=== PATIENT | male | born 1985 | race Caucasian/White ===

== ENCOUNTER 2018-01-13 13:29 | Emergency (ER) | payer MEDICAID, SELFPAY ==
[2018-01-13 13:30] VITALS: BP 153/95; PULSE 111; RESP 18; TEMP 37.1; O2SAT 100; BMI 32.9
--- NOTE | 2018-01-13 14:28 | ED.DCSUM_ITS ---
- ER Visit Summary Date of Service: 01/13/18 Chief Complaint: [] Back pain History of Present Illness: The patient is a 32 M [] complaining of acute back pain after moving himself out of his apartment into a new place as well as moving his mother out of her apartment into a new place in the last 24 hours. Reports pain in the low lumbosacral spine. Denies any obvious injury. Reports taking ibuprofen twice prior to arrival without relief. Does report a previous history of back surgery. Physical Examination: [] Morbidly obese male in no acute distress. Cardiovascular exam is regular rate and rhythm. Lungs are clear to auscultation. Abdomen is soft and nontender. Neck and back exam revealed mild midline lumbosacral tenderness around L5 and S1 without step-off or deformity. Remainder of exam is unremarkable. Test Results: [] None Emergency Department Course and Treatment: [] Patient given 10 mg IM morphine and 60 mg IM Norflex for analgesia. He is given prescriptions for Naprosyn and Flexeril and encouraged to follow-up with his primary care physician. Treatment Plan: [] Follow-up with PCP. Disposition: [] Discharge, Stable. Impression: [] Acute back pain This note was generated with [employer] dictation software. It may contain incorrect words, spelling, and punctuation that were not noted in review of the chart prior to signing ED Disposition - Plan for ED Patient: Chief Complaint: Back Instructions: ED Spasm Back No Trauma Prescriptions: Naproxen 500 mg PO BID PRN PRN #20 tab PRN Reason: Pain Cyclobenzaprine [Flexeril] 10 mg PO TID #15 tab Referrals: Care Physician,No Primary [Primary Care Provider] -
--- NOTE | 2018-01-13 14:28 | ED.DEP ---
ED Disposition - Plan for ED Patient: Disposition: Home or Assisted Living Chief Complaint: Back Instructions: ED Spasm Back No Trauma Prescriptions: Naproxen 500 mg PO BID PRN PRN #20 tab PRN Reason: Pain Cyclobenzaprine [Flexeril] 10 mg PO TID #15 tab Referrals: Care Physician,No Primary [Primary Care Provider] -
[2018-01-13] MEDS: Orphenadrine 60 MG/2 ML Ampul IM (14:53)
[2018-01-13 15:17] VITALS: PULSE 102; RESP 16; O2SAT 98
[2018-01-13 15:18] VITALS: BP 145/70; PULSE 101; RESP 14; O2SAT 98
== END 2018-01-13 15:18 | disposition home or self-care (01) ==
PROVIDERS: Emergency Provider Emergency Medicine
DX: M54.5 Low back pain (principal); E66.01 Morbid (severe) obesity due to excess calories; Z90.89 Acquired absence of other organs; Z72.0 Tobacco use
CPT/HCPCS: 96372; 99283

== ENCOUNTER 2018-01-16 19:02 | Emergency (ER) | payer MEDICAID, SELFPAY ==
[2018-01-16 19:03] VITALS: BP 163/112; PULSE 116; RESP 16; TEMP 36.9; O2SAT 97; BMI 32.9
--- NOTE | 2018-01-16 20:18 | ED.VISSUMM ---
- ER Visit Summary Date of Service: 01/16/18 Chief Complaint: Acute lower and right-sided back pain History of Present Illness: The patient is a 32 M prior L5-S1 discectomy done by Dr. Tommy Cordova of orthopedics. On furniture to help move family members. Last week he started getting lower back pain that is progressively gotten worse now radiates down his right leg and is burning sensation. Denies any bowel or bladder incontinence. He denies any fever. He denies any fall or trauma. He is on no blood thinners. He denies any weakness in his lower extremities. The pain is worse with movement. Physical Examination: Young male c/o back pain. Vital signs are stable with blood pressure is elevated 163/112. He is tachycardic at 116. He is afebrile. H EENT exam markable. Neck nontender no lymphadenopathy. Lungs clear to auscultation bilaterally. Heart regular rhythm no murmur. Rate about 110. Abdomen soft nontender. Normal bowel sounds no peritoneal signs. Extremities moving all 4. Neurovascular intact. No cauda equina in the lower extremities. Normal medial thigh sensation. Dorsi plantar flexion intact. Does have a positive straight leg raise at about 30? on the right. He also has on the back exam lower lumbar tenderness and SI joint tenderness. There is no warmth or redness. No weakness either lower extremity. Normal sensation. Neurologic exam is unremarkable. No focal motor deficits. Test Results: None Emergency Department Course and Treatment: I am morphine p.o. Zofran. Patient instructed to follow-up either with Dr. Barr or [facility] spine surgeons. He is in need further evaluation. This may be a secondary to disc inflammation. Treatment Plan: [place] 20 no refill continue the Naprosyn. Call follow-up with the Dr. Cordova [facility] spine. Disposition: Discharge Impression: Acute on chronic lower back pain with sciatica History of prior discectomy This note was generated with [employer] dictation software. It may contain incorrect words, spelling, and punctuation that were not noted in review of the chart prior to signing ED Disposition - Plan for ED Patient: Chief Complaint: Back Referrals: Care Physician,No Primary [Primary Care Provider] -
--- NOTE | 2018-01-16 20:21 | ED.DEP ---
ED Disposition - Plan for ED Patient: Disposition: Home or Assisted Living Chief Complaint: Back Instructions: ED Sciatica Prescriptions: Hydrocodone/Acetaminophen [[place] 10-325 Tablet] 1 ea PO Q4H PRN PRN #20 tab PRN Reason: Pain Referrals: Tommy Cordova MD [STAFF PHYSICIAN] - Additional Instructions: On follow-up with 1 to [facility] orthopedic spine surgeons for ablation. Either Motrin or Naprosyn not both for inflammation. Sheridan for the stronger pain. Plenty of fluids and fiber to prevent constipation secondary to the pain medication. Return to the ER if leg weakness, worsening pain, fever, bowel or bladder incontinence or unable to have a bowel movement or urinate.
--- NOTE | 2018-01-16 20:22 | ED.DCSUM_ITS ---
- ER Visit Summary Date of Service: 01/16/18 Chief Complaint: Acute lower and right-sided back pain History of Present Illness: The patient is a 32 M prior L5-S1 discectomy done by Dr. Tommy Cordova of orthopedics. On furniture to help move family members. Last week he started getting lower back pain that is progressively gotten worse now radiates down his right leg and is burning sensation. Denies any bowel or bladder incontinence. He denies any fever. He denies any fall or trauma. He is on no blood thinners. He denies any weakness in his lower extremities. The pain is worse with movement. Physical Examination: Young male c/o back pain. Vital signs are stable with blood pressure is elevated 163/112. He is tachycardic at 116. He is afebrile. H EENT exam markable. Neck nontender no lymphadenopathy. Lungs clear to auscultation bilaterally. Heart regular rhythm no murmur. Rate about 110. Abdomen soft nontender. Normal bowel sounds no peritoneal signs. Extremities moving all 4. Neurovascular intact. No cauda equina in the lower extremities. Normal medial thigh sensation. Dorsi plantar flexion intact. Does have a positive straight leg raise at about 30? on the right. He also has on the back exam lower lumbar tenderness and SI joint tenderness. There is no warmth or redness. No weakness either lower extremity. Normal sensation. Neurologic exam is unremarkable. No focal motor deficits. Test Results: None Emergency Department Course and Treatment: I am morphine p.o. Zofran. Patient instructed to follow-up either with Dr. Barr or [facility] spine surgeons. He is in need further evaluation. This may be a secondary to disc inflammation. Treatment Plan: [place] 20 no refill continue the Naprosyn. Call follow-up with the Dr. Cordova [facility] spine. Disposition: Discharge Impression: Acute on chronic lower back pain with sciatica History of prior discectomy This note was generated with [employer] dictation software. It may contain incorrect words, spelling, and punctuation that were not noted in review of the chart prior to signing ED Disposition - Plan for ED Patient: Chief Complaint: Back Referrals: Care Physician,No Primary [Primary Care Provider] -
--- NOTE | 2018-01-16 20:25 | DCINST.ED_ITS ---
ED Disposition - Plan for ED Patient: Disposition: Home or Assisted Living Chief Complaint: Back Instructions: ED Sciatica Prescriptions: Hydrocodone/Acetaminophen [Hiram 10-325 Tablet] 1 ea PO Q4H PRN PRN #20 tab PRN Reason: Pain Referrals: Tommy Cordova MD [STAFF PHYSICIAN] - Additional Instructions: On follow-up with 1 to [facility] orthopedic spine surgeons for ablation. Either Motrin or Naprosyn not both for inflammation. Hiram for the stronger pain. Plenty of fluids and fiber to prevent constipation secondary to the pain medication. Return to the ER if leg weakness, worsening pain, fever, bowel or bladder incontinence or unable to have a bowel movement or urinate.
[2018-01-16] MEDS: Ondansetron ODT 4 MG Tablet PO (20:26)
[2018-01-16 20:45] VITALS: BP 132/88; PULSE 94; RESP 17; O2SAT 96
--- NOTE | 2018-01-16 20:46 | ED.RN ---
DISCHARGE INSTRUCTIONS GIVEN TO AND REVIEWED WITH PATIENT, PATIENT DENIES QUESTIONS OR CONCERNS AND VOICES UNDERSTANDING OF DISCHARGE INSTRUCTIONS. PT AMBULATES OUT OF ROOM WITHOUT ISSUE.
== END 2018-01-16 20:46 | disposition home or self-care (01) ==
PROVIDERS: Emergency Provider Emergency Medicine
DX: M54.41 Lumbago with sciatica, right side (principal); G89.29 Other chronic pain; Z98.890 Other specified postprocedural states; Z90.89 Acquired absence of other organs; Z72.0 Tobacco use
CPT/HCPCS: 96372; 99283

== ENCOUNTER 2019-05-26 18:04 | Emergency (ER) | payer MEDICAID, SELFPAY ==
[2019-05-26 18:05] VITALS: BP 188/108; PULSE 117; RESP 18; TEMP 36.6; O2SAT 98; BMI 41.6
[2019-05-26] MEDS: HYDROmorphone 1 MG/ML Syringe IM (18:39)
--- NOTE | 2019-05-26 18:45 | RAD_ITS ---
STUDY: X-RAY - LUMBAR SPINE REASON FOR EXAM: Male, 33 years old. Pain TECHNIQUE: 3 view(s) of the lumbar spine were obtained. COMPARISON: X-ray lumbar spine November 11, 2017 FINDINGS: There is no evidence of fracture or dislocation in the lumbar spine. The vertebral body heights and disc spaces are well-maintained. There are no significant degenerative changes. L2-L3 fusion is present. RAD/Lumbar Spine 2 or 3 Views IMPRESSION: No fracture or dislocation in the lumbar spine. Electronically Signed: Baljinder Del Valle, at 19:01 EDT Tel , Service support ,
--- NOTE | 2019-05-26 19:59 | ED.VISSUMM ---
- ER Visit Summary Date of Service: 05/26/19 Chief Complaint: [Back pain ] History of Present Illness: The patient is a 33 M [presents to the emergency department with back pain that started 2 days ago. Patient states that he was working in his yard when he felt a pop in his low back. Patient had pain ever since. Patient gradually worsened and now is having hard time sleeping at night. Patient also states that his neck supple bit stiff he thinks because of all the spasm and stress. Patient does have a history of chronic back pain issues and had surgery about a year ago for lumbar fusion. Patient denies any urinary symptoms. He denies any change in bowel or bladder function. He denies any weakness in the extremities. Patient chronically has some tingling in his left leg which is not new.] Physical Examination: [HEENT-PERRLA, EOMI. Cranial nerves II through XII grossly intact. TMs clear. Mucous membranes moist. No adenopathy. Cardiovascular-regular rate and rhythm without murmur or ectopy Lungs-clear to auscultation, chest wall stable without crepitus or subcu emphysema Abdomen-normoactive bowel sounds, soft, nontender, no rebound or rigidity, no peritoneal signs. Back exam-patient does have a large central scar over the lumbar spine that is well-healed. There is no erythema or warmth noted. Patient has diffuse tenderness over the lumbar spine and lumbar paraspinal muscular bilaterally. Deep tendon reflexes are plus 2 out of 4 bilaterally at the patella and Achilles. Patient has normal 5 extension. Patient has normal sensation to light touch. Extremities-intact ?4, normal range of motion, normal pulses, atraumatic] Test Results: [There is a lumbar spine showed no acute fractures and did show a fusion at L2-3.] Emergency Department Course and Treatment: [Medically with Dilaudid 1 mg IM.] Treatment Plan: [Will be given a prescription for [place] for pain and advised to follow-up with his primary care physician or surgeon within next 3 to 5 days.] Disposition: [Discharged home in stable condition.] Impression: [Lumbar strain] This note was generated with [employer] dictation software. It may contain incorrect words, spelling, and punctuation that were not noted in review of the chart prior to signing ED Disposition - Plan for ED Patient: Referrals: [facility] [address] Doctor,Out of [Primary Care Provider] -
--- NOTE | 2019-05-26 20:02 | DCINST.ED_ITS ---
ED Disposition - Plan for ED Patient: Instructions: Back Sprain/Strain Prescriptions: Hydrocodone Bitart/Apap 5-325 [[place] 5MG-325MG] 1 tab PO Q4H PRN PRN 2 Days #14 tab PRN Reason: Pain Prescription Printed Referrals: [facility] Doctor,Out of [Primary Care Provider] - 3-5 Days
== END 2019-05-26 20:29 | disposition home or self-care (01) ==
LOC: ED 19:01
PROVIDERS: Emergency Provider Emergency Medicine; Family Provider Family Medicine; PCP Family Medicine
DX: S39.012A Strain of muscle, fascia and tendon of lower back, initial encounter (principal); X58.XXXA Exposure to other specified factors, initial encounter; Y93.9 Activity, unspecified; Y92.9 Unspecified place or not applicable; M54.9 Dorsalgia, unspecified; G89.29 Other chronic pain; R20.2 Paresthesia of skin; Z98.1 Arthrodesis status; Z72.0 Tobacco use
CPT/HCPCS: 72100; 96372; 99282

== ENCOUNTER 2019-06-20 16:10 | Emergency (ER) | payer MEDICAID, SELFPAY ==
[2019-06-20 16:12] VITALS: BP 126/72; PULSE 107; RESP 16; TEMP 36.2; O2SAT 99; BMI 35.6
--- NOTE | 2019-06-20 18:01 | ED.DCSUM_ITS ---
- ER Visit Summary Date of Service: 06/20/19 Chief Complaint: Back pain History of Present Illness: The patient is a 33 M who presents with back pain that has been getting progressively worse over the past 2 days. Patient describes the pain as aching and burning. Patient states the pain is in the right lower lumbar area and radiates to the right posterior hip area. Patient denies any paresthesias or weakness. Patient denies any bowel or bladder changes. Patient denies any saddle anesthesia. Patient denies any trauma or injury. Patient states the pain is worse with weightbearing and with ambulation. Patient states he saw his primary care physician today who told him to increase his Flexeril. Patient states this is not helped. Physical Examination: Vital signs are stable. Patient is afebrile. Patient is in no acute distress. Musculoskeletal exam reveals tenderness of the right lumbar paraspinal muscles. There is no bony crepitance or step-off. Range of motion was limited in all motions of the lumbar spine secondary to pain. There is some mild tenderness over the right posterior hip area. There is pain with internal and external rotation. There is no deformity noted. Straight leg raises produce pain in the right hip but no radicular pain. Sensation was intact to light touch bilaterally in the lower extremities. Strength is 5/5 in the lower extremities. Deep tendon reflexes are 2/4 bilaterally in the lower extremity. Test Results: X-rays of the right hip were obtained. There is no acute process noted. Emergency Department Course and Treatment: Patient was given an injection of morphine here. Patient was feeling better on reevaluation. Patient was given a prescription for a short course of Jenkinjones. Patient was given a note for work. Patient was instructed to follow-up with his primary care physician in 3 to 5 days. Patient understood and was agreeable with the plan. All questions were answered. Disposition: Discharge home Impression: 1. Acute low back pain This note was generated with [employer] dictation software. It may contain incorrect words, spelling, and punctuation that were not noted in review of the chart breanao r to signing ED Disposition - Plan for ED Patient: Disposition: Home or Assisted Living Diagnosis: Acute low back pain Instructions: BACK PAIN w/ SCIATICA Prescriptions: Hydrocodone Bitart/Apap 5-325 [Jenkin[place] 5MG-325MG] 1 tab PO Q6H PRN PRN 3 Days #10 tab PRN Reason: Pain Prescription Printed Referrals: Emelina Kaye [Primary Care Provider] - 3-5 Days
[2019-06-20] MEDS: Morphine 4 MG/ML Syringe IM (18:13)
--- NOTE | 2019-06-20 18:30 | RAD_ITS ---
STUDY: X-RAY - PELVIS AND RIGHT HIP REASON FOR EXAM: Male, 33 years old. Pain TECHNIQUE: 4 views of the pelvis and hip. COMPARISON: None. FINDINGS: There is a non-specific bowel gas pattern. Normal visualized soft tissue structures. Normal bilateral iliac wings, sacroiliac joints and visualized sacrum. Normal bilateral superior and inferior pubic rami. Normal pubic symphysis. Normal bilateral ischial tuberosities. Normal visualized femoral head. Normal acetabulum. Normal hip joint. RAD/HIP, UNI W/ Pelvis 2-3 Views IMPRESSION: Normal x-ray examination of the pelvis and hip. Electronically Signed: Baljinder Del Valle, at 18:49 EDT Tel , Service support ,
== END 2019-06-20 19:37 | disposition home or self-care (01) ==
PROVIDERS: Emergency Provider Emergency Medicine; Family Provider Family Medicine; PCP Family Medicine
DX: M54.5 Low back pain (principal); E11.9 Type 2 diabetes mellitus without complications; F17.200 Nicotine dependence, unspecified, uncomplicated
CPT/HCPCS: 73502; 96372; 99282

== ENCOUNTER 2019-06-23 21:48 | Emergency (ER) | payer MEDICAID, SELFPAY ==
[2019-06-23 21:49] VITALS: BP 159/85; PULSE 108; RESP 20; TEMP 36.5; O2SAT 100; BMI 42.3
--- NOTE | 2019-06-23 22:24 | ED.VIS.BACK ---
History of Present Illness Chief Complaint: Back Informant: Patient Onset: Days Context: Sudden Onset Injury: - - No history of trauma Timing: Continuous Quality: Dull, Aching Location: Lumbar, Right Leg Current Severity: Moderate Maximum Severity: Severe Worsened by: improves with: Movement, Ambulation, Bending, Lifting, - - Not able to put weight on his right side Relieved by: Nothing Associated Symptoms: Tingling, Radiation to Right Leg, - - No bowel bladder dysfunction. No saddle paresthesia or anesthesia. No foot drop. No buckling of his knees going up or down steps. No fever, chills night sweats. No weight loss. No urologic symptoms i.e. dysuria or hematuria. Narrative: Patient is a 33-year-old male with microdisc surgery x2 and fusion by Dr. Rosales at the [facility]. He presents with atraumatic low back pain. He complains of pain anterior right thigh. He is taking ibuprofen with no effect. - Past Medical History (1) Chronic back pain greater than 3 months duration Status: Chronic Past Medical History - Allergies and Home Meds Allergies/Adverse Reactions: Allergies No Known Allergies Allergy (Verified 06/23/19 21:51) Primary Care Physician: Emelina Kaye [Primary Care Provider] - Surgical History: - - Good discectomy and fusion Lives: Alone Smoking Status: Current every day smoker Alcohol: Rare, Occasional Drugs: None Review of Systems General: Denies: Chills, Fever, Malaise, Subjective, Sweats, Weight loss Eyes: Denies: Visual changes - bilaterally, Blurred Vision - bilaterally, Diplopia ENT: Denies: Rhinorrhea, Sore throat Cardiovascular: Denies: Chest pain, Palpitations Respiratory: Denies: Dyspnea, Cough, Dyspnea on exertion Gastrointestinal: Denies: Abdominal pain, Nausea, Vomiting, Diarrhea, Melena, Hematochezia Genitourinary: Denies: Dysuria, Hematuria, Frequency Musculoskeletal: Reports: Back pain. Denies: Myalgias, Arthralgias, Neck pain, Swelling, Extremity Pain Skin: Denies: Rash, Wounds Neurological: Denies: Headache, Weakness, Numbness Hematologic: Denies: Easy bruising, Easy bleeding Allergy: Denies: Uticaria, Swelling of the mouth, Swelling of the tongue Physical Exam Vital Signs/Narrative: Vital Signs Temp Pulse Resp BP Pulse Ox 08/09/19 21:49 97.7 F L 108 H 20 H 159/85 H 100 Inital Vital Signs reviewed: Yes General: Well nourished, Well developed, Unkempt Head: Normocephalic, Atraumatic Eyes: Perrl, EOMI ENT: Moist mucous membranes, No rhinorrhea Neck: Supple, Nontender Cardiovascular: Regular rate, Regular rhythm, No murmurs Respiratory: No distress, CTA bilaterally, Chest nontender Abdomen: Soft, Nontender, Nondistended, Normal bowel sounds Back: Normal Inspection, Nontender, Paraspinal Tenderness - Right greater than left, - - Straight leg test was met with resistance. He complained of pain with elevation of his right and left leg at 5 degrees. When asked why he would not allow me to raise his leg he states it hurts.. Negative for: Spinal tenderness Extremeties: Nontender, No edema Skin: Normal color, No rash, No Trauma. Negative for: Cyanosis, Diaphoresis, Jaundice Neuro: Alert, Oriented, Normal Strength, Normal Sensation, Normal DTR - DTR plus minus bilaterally, Normal Gait, Normal Reflexes, Normal Cerebellar Reflexes: Right Patellar, Right Achilles, Left Patellar, Left Achilles. Negative for: Right Clonus, Right Babinski, Left Clonus, Left Babinski Psychological: Depressed Diagnostic/Tx/Re-eval - Medical Decision Making Vimal limited the pain. IV was established and he was medicated. We will reexamine to assess for straight leg test. She was reexamined after medication. Straight leg test was negative. Patient was reassessed again at 2330. He is resting on the examination bed comfortably. He states his insurance company will not approve an MRI. I informed him based on my exam he does not require an emergent MRI. He was given a short course of opiate analgesia and instructed to follow-up with his spine surgeon Dr. Rosales and his PCP for pain management. ED Disposition - Plan for ED Patient: Disposition: Home or Assisted Living Diagnosis: Pain of back and right lower extremity Instructions: BACK AND NECK PAIN, General Prescriptions: Hydrocodone Bitart/Apap 5-325 [[place] 5MG-325MG] 1 tab PO Q6H PRN PRN 3 Days #10 tab PRN Reason: Pain Prescription Printed Referrals: Emelina Kaye [Primary Care Provider] - 3-5 Days if not improving
[2019-06-23] MEDS: Ketorolac 15 MG/ML Vial IV (22:35)
[2019-06-23] MEDS: morphine 8 MG/ML Syringe IV (22:35)
[2019-06-24 00:06] VITALS: BP 150/85; PULSE 99; RESP 16; O2SAT 100
== END 2019-06-24 00:07 | disposition home or self-care (01) ==
PROVIDERS: Emergency Provider Emergency Medicine; Family Provider Family Medicine; PCP Family Medicine
DX: M54.5 Low back pain (principal); G89.29 Other chronic pain; M79.651 Pain in right thigh; R20.2 Paresthesia of skin; F17.200 Nicotine dependence, unspecified, uncomplicated
CPT/HCPCS: 96374; 96375; 99285; A4216

== ENCOUNTER 2019-08-15 11:36 | Emergency (ER) | payer MEDICAID, SELFPAY ==
[2019-08-15 11:37] VITALS: BP 166/107; PULSE 118; RESP 18; TEMP 36.6; O2SAT 100; BMI 36.2
[2019-08-15] MEDS: morphine 8 MG/ML Syringe SC (12:07)
[2019-08-15] MEDS: Ketorolac 30 MG/ML Syringe IM (12:08)
--- NOTE | 2019-08-15 12:08 | ED.DCSUM_ITS ---
History of Present Illness Chief Complaint: Back Narrative: Patient presenting for evaluation secondary to back pain. Patient has a history of a discectomy and fusion performed about 3 years ago. He intermittently will have issues with his back, he is been having exacerbation of the course of the last 3 days. He states that the pain is continuous and does radiate down his right leg and is associated with a burning sensation over the lateral portion of his right thigh. Patient reports that he was unable to get in with his primary care physician so he is coming to the emergency department. He denies any bowel or bladder incontinence. He denies any saddle anesthesia. He denies any fevers chills night sweats or unintended weight loss. No recent surgeries or injections, no history of IV drug abuse. Pain is worse with ambulation and movement. Review of systems otherwise negative. Past Medical History - Allergies and Home Meds Allergies/Adverse Reactions: Allergies No Known Allergies Allergy (Verified 08/15/19 11:39) Primary Care Physician: Emelina Kaye [Primary Care Provider] - Past Medical History: - - Prior back pain Surgical History: - - Good discectomy and fusion Smoking Status: Light Smoker (<10/day) Review of Systems All systems negative except as indicated Musculoskeletal: Reports: Back pain Physical Exam Vital Signs/Narrative: Vital Signs Temp Pulse Resp BP Pulse Ox 08/15/19 11:37 97.9 F 118 H 18 166/107 H 100 Inital Vital Signs reviewed: Yes General: Well nourished, Well developed Head: Normocephalic, Atraumatic Eyes: Perrl, EOMI ENT: Moist mucous membranes, No rhinorrhea Neck: Supple, Nontender Cardiovascular: Regular rate, Regular rhythm, No murmurs, - - 2+ radial, 2+ PT pulses bilaterally symmetric Respiratory: No distress, CTA bilaterally, Chest nontender Abdomen: Soft, Nontender, Nondistended, Normal bowel sounds. Negative for: Pulsatile mass Back: - - Large well-healed midline surgical scar. Diffuse lumbar tenderness to palpation no real localization over the midline. Extremeties: Nontender, No edema Skin: Normal color, No rash Neuro: Alert, Oriented, - - 5 out of 5 strength at the hip knee ankle and foot. Normal sensation over all dermatomes. 1+ patellar and Achilles reflexes negative clonus and Babinski. Straight leg raise is positive bilaterally. Diagnostic/Tx/Re-eval - Medical Decision Making Patient presented secondary to back pain. There is no red flag signs or symp toms that would indicate spinal cord impingement, cauda equina, epidural abscess or hematoma. Patient was treated with Toradol and morphine in the emergency department. Patient will be treated with a course of Medrol and a short course of [place] for treatment of his pain. He was instructed that he should follow-up with his spine surgeon. Disposition: Home ED Disposition - Plan for ED Patient: Disposition: Home or Assisted Living Diagnosis: Lumbar radiculopathy Instructions: BACK PAIN w/ SCIATICA Prescriptions: MethylPREDNISolone DosePak [Medrol DosePak] 4 mg PO UD #1 box Prescription Printed Hydrocodone Bitart/Apap 5-325 [[place] 5MG-325MG] 1 tab PO Q6H PRN PRN 3 Days #12 tab PRN Reason: Pain Prescription Printed Additional Instructions: Followup with your Spine Surgeon
== END 2019-08-15 12:37 | disposition home or self-care (01) ==
PROVIDERS: Emergency Provider Emergency Medicine; Family Provider Family Medicine; PCP Family Medicine
DX: M54.16 Radiculopathy, lumbar region (principal); Z98.1 Arthrodesis status; F17.200 Nicotine dependence, unspecified, uncomplicated
CPT/HCPCS: 96372; 99282

== ENCOUNTER 2019-11-06 21:45 | Emergency (ER) | payer MEDICAID, SELFPAY ==
[2019-11-06 21:46] VITALS: BP 168/61; PULSE 98; RESP 16; TEMP 36.9; O2SAT 100; BMI 40.1
--- NOTE | 2019-11-06 21:58 | ED.DCSUM_ITS ---
- ER Visit Summary Date of Service: 11/06/19 Chief Complaint: Back pain History of Present Illness: The patient is a 34 M who presents with back pain. He says his back pain for 6 months. He has a history of back issues in the past and has had 3 previous back surgeries. He states he had a recent MRI about 3 months ago which showed a bulging disc. They recommended injections but his insurance declined. He states he is on gabapentin and Relafen at home for this pain. He states the pain is just getting worse. He is not currently seeing any back surgeons. He denies any bowel or bladder incontinence. No numbness or tingling. Physical Examination: Vital signs reviewed. HEENT exam unremarkable. Heart is regular rate and rhythm without murmurs. Lungs are clear to auscultation. Abdomen is soft and nontender. Back exam reveals tenderness in the diffuse lumbar area. He has a previous surgical scar. Extremities reveal no edema. Skin exam normal. Neurologic exam normal. Test Results: None performed Emergency Department Course and Treatment: The patient was given Toradol and Norflex here. I will send him home with a prescription for prednisone to see if this will help with his pain. He will continue his home pain medications. He will call his doctor tomorrow for follow-up. Since this is chronic pain I do not feel he needs any new imaging studies. Treatment Plan: [] Disposition: Discharge Impression: Acute on chronic back pain This note was generated with [employer] dictation software. It may contain incorrect words, spelling, and punctuation that were not noted in review of the chart prior to signing ED Disposition - Plan for ED Patient: Referrals: Emelina Kaye [Primary Care Provider] -
--- NOTE | 2019-11-06 22:05 | ED.DEP ---
ED Disposition - Plan for ED Patient: Disposition: Home or Assisted Living Instructions: BACK PAIN (Acute or Chronic) Prescriptions: Prednisone [Deltasone] 40 mg PO DAILY #10 tab Prescription Printed Referrals: Emelina Kaye [Primary Care Provider] -
[2019-11-06] MEDS: Ketorolac 60 MG/2 ML Vial IM (22:14)
[2019-11-06] MEDS: Orphenadrine 60 MG/2 ML Ampul IM (22:14)
== END 2019-11-06 22:50 | disposition home or self-care (01) ==
LOC: ED 22:12
PROVIDERS: Emergency Provider Emergency Medicine; Family Provider Family Medicine; PCP Family Medicine
DX: M54.5 Low back pain (principal); G89.29 Other chronic pain; I10 Essential (primary) hypertension; Z72.0 Tobacco use
CPT/HCPCS: 96372; 99282

== ENCOUNTER 2020-01-08 19:47 | Emergency (ER) | payer MEDICAID, SELFPAY ==
[2020-01-08 19:48] VITALS: BP 162/96; PULSE 97; RESP 16; TEMP 36.8; O2SAT 99; BMI 37.3
--- NOTE | 2020-01-08 21:00 | RAD_ITS ---
STUDY: X-RAY - LUMBAR SPINE REASON FOR EXAM: Male, 34 years old. PT FELL DOWN STAIRS TODAY AND HAS LOW BACK PAIN. HX OF SPINAL FUSION. TECHNIQUE: Pre- view(s) of the lumbar spine were obtained. COMPARISON: November 11, 2017 , May 26, 2019 Lumbar Spine x-ray FINDINGS: Normal lumbar lordosis. There is no substantial scoliosis. There is a normal alignment of the vertebrae. Since the prior study November 11, 2017 there was a spinal fusion at L2-L3. The spinal fusion is similar in appearance to the study dated May 26, 2019. There are bilateral cortical screws at L2-L3 with bilateral spinal rods. An interconnecting bar is not demonstrated. There is no appreciable loss of height or alignment when compared to the prior study. Normal disc space heights. There is a small surgical clip overlying the right iliac crest similar to prior study. RAD/Lumbar Spine 2 or 3 Views IMPRESSION: Stable L2-L3 lumbar spine fusion. No visualized acute loss of height or alignment. Electronically Signed: Amanda Chu MD at 21:30 EST Tel , Service support ,
[2020-01-08] MEDS: Morphine 4 MG/ML Syringe IM (21:19)
--- NOTE | 2020-01-08 22:06 | ED.DCSUM_ITS ---
- ER Visit Summary Date of Service: 01/08/20 Chief Complaint: Back pain History of Present Illness: The patient is a 34 M who presents with back pain that began after a fall today. Patient states he fell approximately 4-5 steps. Patient describes his pain as burning and throbbing. Patient states pain is over the lumbar spine and lower thoracic spine. Patient states nothing makes it better or worse. Patient denies any radiation of the pain. Patient denies any bowel or bladder changes. Patient denies any paresthesias or weakness. Patient denies any saddle anesthesia. Physical Examination: Vital signs are stable. Patient is afebrile. Patient is in no acute distress. Musculoskeletal exam reveals tenderness over the lumbar spine and paraspinal muscles. There is no bony crepitance or step-off. Range of motion was limited in all motions of the lumbar spine secondary to pain. There are no deformities noted. Strength is 5/5 bilaterally in the lower extremities. There are no sensory deficits noted. Deep tendon reflexes are 2+/4 bilaterally. Test Results: X-rays of the lumbar spine were obtained. There is no acute fracture or spondylolisthesis. Prior fusion is in place. These were interpreted by the radiologist and myself. Emergency Department Course and Treatment: Patient was given an injection of morphine here. Patient was instructed to use ice to the area. Patient was given a prescription for Naprosyn. Patient was instructed to follow-up with his primary care physician in 5 to 7 days. Patient understood and was agreeable with the plan. All questions were answered. Disposition: Discharge home Impression: Lumbosacral strain This note was generated with [employer] dictation software. It may contain incorrect words, spelling, and punctuation that were not noted in review of the chart prior to signing ED Disposition - Plan for ED Patient: Disposition: Home or Assisted Living Diagnosis: Lumbosacral strain Instructions: Back Sprain/Strain Prescriptions: Naproxen [Naprosyn] 500 mg PO BID PRN #20 tab Prescription Printed Referrals: Emelina Kaye [Primary Care Provider] - 5-7 Days
[2020-01-08 22:15] VITALS: BP 158/78; PULSE 75; RESP 16; O2SAT 98
== END 2020-01-08 22:16 | disposition home or self-care (01) ==
PROVIDERS: Emergency Provider Emergency Medicine; PCP Family Medicine
DX: S39.012A Strain of muscle, fascia and tendon of lower back, initial encounter (principal); W10.9XXA Fall (on) (from) unspecified stairs and steps, initial encounter; Y93.9 Activity, unspecified; Y92.9 Unspecified place or not applicable; E66.9 Obesity, unspecified
CPT/HCPCS: 72100; 96372; 99283

== ENCOUNTER 2020-01-09 16:50 | Emergency (ER) | payer MEDICAID, SELFPAY ==
[2020-01-08 19:48] VITALS: BMI 37.3
[2020-01-09 16:52] VITALS: BP 133/92; PULSE 107; RESP 18; TEMP 37; O2SAT 98; BMI 40.4
--- NOTE | 2020-01-09 17:14 | ED.DCSUM_ITS ---
- ER Visit Summary Date of Service: 01/09/20 Chief Complaint: Back pain History of Present Illness: The patient is a [address] Kaye. He reports that yesterday he missed a step and fell down 4-5 steps. He was seen in the emergency department had x-rays that were normal. He was discharged with imelda robles. He reports he is got no pain from this. Patient denies any blow to the head or loss consciousness. He denies any neck, shoulder, wrist, or hip pain. He reports he has lower back pain that is burning and throbbing. Is 10-10 with movement or coughing. Is 9 at 10 following naproxen. There is no ration to his legs. No numbness or weakness. No problems with his bowels or his bladder. No groin numbness. Review of systems is negative. He has no red flags for back pain. Physical Examination: Vitals: Stable. Afebrile. General: A&O x 3. NAD. Cardiovascular exam: Regular rate and rhythm, no murmur, rub or gallop. Respiratory exam: Clear to auscultation bilaterally. No wheezes or stridor. Abdominal exam: Soft, nontender, nondistended, normal bowel sounds. No peritoneal signs. Back: Diffuse moderate tenderness to palpation over the lumbar spine and the paraspinous musculature in the lumbar region. No point tenderness. Negative straight leg bilaterally. 5/5 DF, PF, EHL bilaterally. Normal sensation to light touch throughout. Extremity: No clubbing, cyanosis, or edema. Emergency Department Course and Treatment: An [facility] report was obtained which shows he is had 13 prescriptions for opiate-based medications in the past year. Is given a dose of Toradol IM. Treatment Plan: Patient will be discharged with instructions to follow-up his primary care physician 1 week if not improving. He is also given the phone number for Dr. Patel for pain management. The signs and symptoms of cauda equina syndrome were discussed. He is instructed to return for these. Disposition: To home in improved and stable condition. Impression: 1. Acute on chronic back pain. This note was generated with [employer] software. It may contain incorrect words, spelling, and punctuation that were not noted in review of the chart prior to signing ED Disposition - Plan for ED Patient: Instructions: BACK PAIN (Acute or Chronic) Referrals: Jillian Patel MD [STAFF PHYSICIAN] - 1 Week Emelina Kaye [Primary Care Provider] - 1 Week if not improving
[2020-01-09] MEDS: Ketorolac 60 MG/2 ML Vial IM (17:21)
== END 2020-01-09 18:04 | disposition home or self-care (01) ==
LOC: ED 17:20
PROVIDERS: Emergency Provider Emergency Medicine; PCP Family Medicine
DX: M54.5 Low back pain (principal); G89.29 Other chronic pain; W10.9XXA Fall (on) (from) unspecified stairs and steps, initial encounter; Y93.9 Activity, unspecified; Y92.9 Unspecified place or not applicable; Z72.0 Tobacco use
CPT/HCPCS: 96372; 99282

== ENCOUNTER 2020-01-10 16:38 | Emergency (ER) | payer MEDICAID, SELFPAY ==
[2020-01-09 16:52] VITALS: BMI 40.4
[2020-01-10 16:39] VITALS: BP 135/75; PULSE 102; RESP 18; TEMP 37.1; O2SAT 97; BMI 40.4
--- NOTE | 2020-01-10 17:46 | ED.DCSUM_ITS ---
History of Present Illness Chief Complaint: Back Informant: Patient Onset: Days - 3 Context: Sudden Onset Injury: Fall Timing: Continuous Quality: Aching Location: Thoracic, Lumbar Current Severity: Severe Maximum Severity: Severe Worsened by: improves with: Movement Relieved by: Remaining Still. Not Relieved By: Medications Associated Symptoms: - - No radiation into legs or groin. No paresthesias or weakness. No bowel or bladder dysfunction. Narrative: As with prior 2 visits in the last 3 days, patient had a fall when he missed a step, grab the railing and actually broke it, fell to his buttocks and then slid down the next 4 steps. He continues to have the same pain that he had during the past 2 visits in the last 3 days, pain in his lower thoracic and throughout the lumbar area throughout the center. He had x-rays that showed no acute fractures. He has had prior microdiscectomies and fusion at the L2 level, at least. These were remote. He is here for pain control, saying that the injection of Toradol that he got yesterday and the prescription for Naprosyn or not helping at all and he has been trying heat and ice as well as both together. He tried to call his doctor to get in but is having issues there. Prior similar symptoms: Yes, With Prior Back Pain - Past Medical History (1) Chronic back pain greater than 3 months duration Status: Chronic Past Medical History - Allergies and Home Meds Allergies/Adverse Reactions: Allergies No Known Allergies Allergy (Verified 01/10/20 16:42) Primary Care Physician: Emelina Kaye [Primary Care Provider] - Surgical History: - - lumbar microdiscectomy and fusion Smoking Status: Current every day smoker Review of Systems General: Denies: Chills, Fever, Sweats Genitourinary: Reports: - - No bowel or bladder incontinence or retention Musculoskeletal: Reports: Back pain. Denies: Neck pain, Swelling, Extremity Pain Skin: Denies: Rash, Wounds Neurological: Denies: Headache, Weakness, Numbness Physical Exam Vital Signs/Narrative: Vital Signs Temp Pulse Resp BP Pulse Ox 01/10/20 16:39 98.8 F 102 H 18 135/75 H 97 Inital Vital Signs reviewed: Yes General: Well nourished, Well developed, Obese, - - No acute distress. Sitting in chair. Head: Normocephalic, Atraumatic Back: Normal Inspection, Surgical Scar, Well-Healed, Paraspinal Tenderness - Diffuse bilateral paraspinal tenderness in the lower thoracic and lumbar areas throughout. Nonfocal. No step-off. No tenderness at sciatic notches bilatera lly., Negative SLR - Right, Negative SLR - Left Extremeties: Nontender, No edema Skin: Normal color, No rash, No Trauma Neuro: Alert, Oriented, Normal Strength, Normal Sensation, Normal DTR, Normal Gait Psychological: Normal affect, Normal Mood Diagnostic/Tx/Re-eval - Medical Decision Making I saw the physician's note from yesterday, he was concerned about the patient having lots of narcotic prescriptions from different prescribers in the last 12 months. His I reviewed his report from the [facility], he has had no narcotic prescriptions for the last 5 months. I think it would be reasonable to give him a short supply of something for pain until he can see somebody else in follow-up. No emergent condition present on exam, no cauda equina syndrome. ED Disposition - Plan for ED Patient: Disposition: Home or Assisted Living Diagnosis: Lumbosacral strain Instructions: Back Sprain/Strain Prescriptions: Hydrocodone Bitart/Apap 5-325 [[place] 5MG-325MG] 1 tablet PO Q4H PRN PRN 2 Days #10 tablet PRN Reason: Pain Transmission Status: Received by [facility] [facility] Referrals: Emelina Kaye [Primary Care Provider] - 1 Week if not improving
[2020-01-10] MEDS: HYDROcodone Bitartrate/Apap 5/325 Tablet PO (17:56)
== END 2020-01-10 18:00 | disposition home or self-care (01) ==
PROVIDERS: Emergency Provider Emergency Medicine; PCP Family Medicine
DX: S39.012A Strain of muscle, fascia and tendon of lower back, initial encounter (principal); W10.9XXA Fall (on) (from) unspecified stairs and steps, initial encounter; Y93.9 Activity, unspecified; Y92.9 Unspecified place or not applicable; E66.9 Obesity, unspecified; Z98.1 Arthrodesis status; F17.200 Nicotine dependence, unspecified, uncomplicated
CPT/HCPCS: 99283

== ENCOUNTER 2020-01-12 09:16 | Emergency (ER) | payer MEDICAID, SELFPAY ==
[2020-01-12 09:18] VITALS: BP 177/97; PULSE 78; RESP 16; TEMP 36.7; O2SAT 96; BMI 40.7
--- NOTE | 2020-01-12 09:34 | ED.DCSUM_ITS ---
History of Present Illness Chief Complaint: Back Informant: Patient Onset: Days Context: Gradual Onset Timing: Waxes and wanes Current Severity: Moderate Maximum Severity: Moderate Narrative: Patient presents with lower back pain. Patient is been seen 3 times in the last 4 days for similar. He had a fall down 3 or 4 steps on Wednesday. Since that time he had increased low back pain with heaviness in his legs. He had x-rays performed the day of the injury that showed stable fusion at L2. Patient is currently on Relafen as well as [place] for breakthrough pain. He called EMS this morning stating that his legs felt very heavy and weak and he thought he might fall. EMS gave 50 mcg of fentanyl for pain control. Patient denies any new injury or fall. 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 He thinks he overdid it yesterday. He denies bowel or bladder incontinence. Past Medical History - Allergies and Home Meds Allergies/Adverse Reactions: Allergies No Known Allergies Allergy (Verified 01/12/20 09:24) Primary Care Physician: Emelina Kaye [Primary Care Provider] - Past Medical History: - - Back pain Surgical History: - - lumbar microdiscectomy and fusion Smoking Status: Current every day smoker Review of Systems General: Denies: Chills Eyes: Denies: Visual changes - bilaterally ENT: Denies: Bilateral ear pain Cardiovascular: Denies: Chest pain Respiratory: Denies: Dyspnea Gastrointestinal: Denies: Abdominal pain, Nausea, Vomiting, Diarrhea Musculoskeletal: Reports: Back pain, Extremity Pain. Denies: Swelling Neurological: Denies: Headache, Numbness Hematologic: Denies: Easy bruising, Easy bleeding Allergy: Denies: Uticaria Physical Exam Vital Signs/Narrative: Vital Signs Temp Pulse Resp BP Pulse Ox 01/12/20 09:18 98.1 F 78 16 177/97 H 96 Inital Vital Signs reviewed: Yes General: Well nourished, Well developed Head: Normocephalic ENT: Moist mucous membranes Neck: Supple Cardiovascular: Regular rate, Regular rhythm Respiratory: No distress, CTA bilaterally Abdomen: Soft, Nontender, Normal bowel sounds, No masses Back: - - Lumbar tenderness, left paraspinals greater than right. Palpable spasm. Mild midline pain. Extremities: Nontender, No edema Skin: Normal color, No rash Neurological: Alert, Oriented x3, Normal Strength, Normal Sensation, - - On distal pulses. Straight leg raise negative bilaterally. 1+ bilateral patellar reflexes. Psychological: Normal affect Diagnostic/Tx/Re-eval - Medical Decision Making Nursing staff did note the patient was able to move from the EMS cot over to the ER bed without difficulty. He did take [place] this morning as well as was given fentanyl by EMS. He is on Relafen as an anti-inflammatory. Patient will be given a dose of Flexeril here to help with muscle spasm. On repeat evaluation patient is resting comfortably. He will be given a prescription for Flexeril. He is to continue his Relafen and [place]isle for breakthrough pain. He is to follow-up with his doctor on the sixth as scheduled. ED Disposition - Plan for ED Patient: Disposition: Home or Assisted Living Diagnosis: Back spasm Instructions: Back Sprain/Strain, Muscle Spasm Prescriptions: cycloBENZAPRine HCl [Flexeril] 10 mg PO TID PRN #20 tab PRN Reason: Muscle Spasm Transmission Status: Pending to [facility] Referrals: Emelina Kaye [Primary Care Provider] - Keep Liv appointment
[2020-01-12] MEDS: cycloBENZAPRine HCl 10 MG Tablet PO (10:10)
[2020-01-12 10:48] VITALS: BP 135/75; PULSE 80; RESP 17; O2SAT 100
== END 2020-01-12 10:48 | disposition home or self-care (01) ==
PROVIDERS: Emergency Provider Emergency Medicine; PCP Family Medicine
DX: M62.830 Muscle spasm of back (principal); M54.5 Low back pain; W10.9XXA Fall (on) (from) unspecified stairs and steps, initial encounter; Y93.9 Activity, unspecified; Y92.9 Unspecified place or not applicable; Z98.1 Arthrodesis status; F17.200 Nicotine dependence, unspecified, uncomplicated
CPT/HCPCS: 99285

== ENCOUNTER 2020-01-16 18:43 | Emergency (ER) | payer SELFPAY ==
[2020-01-16 18:44] VITALS: BP 163/114; PULSE 82; RESP 15; TEMP 36.7; O2SAT 99; BMI 35.2
--- NOTE | 2020-01-16 20:43 | ED.DCSUM_ITS ---
- ER Visit Summary Date of Service: 01/16/20 Chief Complaint: Back pain History of Present Illness: The patient is a [address] Kaye. Patient reports that approximately 1 week ago he slipped on the steps and try to catch himself when he was falling and up falling down 4-5 steps on his buttocks. S tates that he has had an aching low back pain since that time is 10 out of 10 at worst 9-10 currently. Is worsened by movement. He is taking his NSAIDs and Flexeril without relief. He denies any radiation to his legs. No problems with his bowels or his bladder. No groin numbness. Patient reports that he has a history of a fusion by Dr. Rivera. He has not called him. He has an appointment to see his primary care physician on January 18. Physical Examination: Vitals: Stable. Afebrile. General: A&O x 3. NAD. Cardiovascular exam: Regular rate and rhythm, no murmur, rub or gallop. Respiratory exam: Clear to auscultation bilaterally. No wheezes or stridor. Abdominal exam: Soft, nontender, nondistended, normal bowel sounds. No peritoneal signs. Back: Diffuse moderate tenderness to palpation over the lumbar spine and the paraspinous musculature in the lumbar region. No point tenderness. Negative straight leg bilaterally. 5/5 DF, PF, EHL bilaterally. Normal sensation to light touch throughout. Extremity: No clubbing, cyanosis, or edema. Emergency Department Course and Treatment: This is the patient's fifth visit to the emergency department for this injury. I saw him on 1 visit and at that time he had had 13 prescriptions for opiates in the past year. I discussed them that is not appropriate to take opiate-based medication for this. He was treated with Toradol here. He has been seen since then and it was felt that because he had had a prescription for opiates for 5 months that he could be given a prescription for [place]. He states he is out of this. I maintain that is still not a good idea to give him more opiate-based medications. I have offered Toradol or Tylenolhere. He is refused all of these. Treatment Plan: Patient will be discharged instructions to follow-up with Dr. Rivera and/or Dr. Patel as I suggested last time for further evaluation and treatment of his acute on chronic back pain. The signs and symptoms of cauda equina syndrome were discussed. He was instructed to return for these. Disposition: To home in improved and stable condition. Impression: 1. Back pain. This note was generated with [employer] dictation software. It may contain incorrect words, spelling, and punctuation that were not noted in review of the chart prior to signing ED Disposition - Plan for ED Patient: Disposition: Home or Assisted Living Instructions: BACK PAIN (Acute or Chronic) Referrals: Bimal Rivera MD [NON-STAFF] - As soon as possible Jillian Patel MD [STAFF PHYSICIAN] - As soon as possible
--- NOTE | 2020-01-29 11:13 | CM.ED ---
SOCIAL WORK ATTEMPTED TO CONTACT PATIENT REGARDING CARE PLAN. LEFT MESSAGE WITH THIS WORKER'S CALL BACK INFORMATION. COPY OF CARE PLAN ALONG WITH RESOURCES MAILED THIS DATE. DR. SLOAN OFFICE UPDATED ON CARE PLAN AND COPY OF CARE PLAN FAXED THIS DATE. Mo MELENDEZ IMPROVEMENT ADVISOR, RESOLUTION AGENT.
== END 2020-01-16 21:00 | disposition home or self-care (01) ==
LOC: ED 20:42
PROVIDERS: Emergency Provider Emergency Medicine; PCP Family Medicine
DX: M54.5 Low back pain (principal); W10.9XXA Fall (on) (from) unspecified stairs and steps, initial encounter; Y93.9 Activity, unspecified; Y92.9 Unspecified place or not applicable; Z98.1 Arthrodesis status; F17.220 Nicotine dependence, chewing tobacco, uncomplicated
CPT/HCPCS: 99282

== ENCOUNTER 2020-04-26 01:50 | Emergency (ER) | payer MEDICAID, SELFPAY ==
[2020-04-26] VITALS (20 sets, daily range): BP systolic 122–166; BP diastolic 68–90; PULSE 69–100; RESP 14–22; TEMP 37; O2SAT 95–100; BMI 41.8
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
[2020-04-26 02:15] LABS: Absolute Lymphocyte Count 4.94 X10^3/uL (0.83-4.51); Absolute Neutrophil Count 9.3 X10^3/uL (2.0-7.7); Basophil# 0.07 X10^3/uL; Basophil% 0.4 % (0-1); Eosinophil# 0.34 X10^3/uL; Eosinophils% 2.1 % (0-5); Hematocrit 44.3 % (40-54); Hemoglobin 14.7 g/dL (13.0-16.5); Lymphocyte # 4.94 X10^3/ul (4.0); Lymphocyte % 31.2 % (19-41); Mean Corp Hgb Conc 33.2 g/dL (32-36); Mean Corpuscular Hgb 30.3 pg (27.0-32.0); Mean Corpuscular Volume 91.3 fL (80-94); Mean Platelet Vol. 11.2 fl (6.2-12.0); Monocyte# 1.13 X10^3/uL; Monocyte% 7.1 % (0-10); NRBC Flagged by Analyzer 0 % (0-5); Neutrophil % 58.8 % (47-70); Platelet Count 241 K/mm3 (150-450); RBC Distribution Width CV 12.6 % (11.6-14.6); RBC Distribution Width SD 41.6 fl (35.1-43.9); Red Blood Count 4.85 M/mm3 (4.6-6.2); White Blood Count 15.8 K/mm3 (4.4-11.0)
[2020-04-26 02:30] LABS: Amphetamine Urine VISTA NEGATIVE (<1000 ng/mL); Barbiturate Urine VISTA NEGATIVE (< 200 ng/mL); Benzodiazepine Urine VISTA NEGATIVE (< 200 ng/mL); Cocaine Urine VISTA NEGATIVE (< 300 ng/mL); Ecstacy Urine VISTA NEGATIVE (< 500 ng/mL); Methadone Urine VISTA NEGATIVE (< 300 ng/mL); PCP Urine VISTA NEGATIVE (< 25 ng/mL); THC Urine VISTA POSITIVE (< 50 ng/mL); Vista UDS pH Range 5
[2020-04-26 02:30] LABS: Anion Gap 10 (5-15); BUN 17 mg/dL (7-18); BUN/Creat Ratio 15.7 RATIO (10-20); Calcium,Total 9.4 mg/dL (8.5-10.1); Chloride 106 mmol/L (98-107); Creatinine, Serum 1.08 mg/dL (0.70-1.30); EST Glomerular Filtration Rate 84 mL/min (>60); Est Glom Filt Rate - Afr Amer 102 mL/min (>60); Estimated Creatinine Clearance 133.33 ml/min; Glucose 128 mg/dL (74-106); Potassium 3.3 mmol/L (3.5-5.1); Sodium Level 141 mmol/L (136-145)
--- NOTE | 2020-04-26 04:21 | EKG12_ITS ---
Test Reason : MHC Blood Pressure : / mmHG Vent. Rate : 074 BPM Atrial Rate : 074 BPM P-R Int : 164 ms QRS Dur : 088 ms QT Int : 372 ms P-R-T Axes : 023 014 014 degrees QTc Int : 412 ms Normal sinus rhythm Normal ECG Confirmed by CHEYANNE HURLEY, ARTURO ([id number]), offline editor PRIYANKA ANNE ([id number]) on 04/29/2020 2:09:51 PM Referred By: CINDY Confirmed By:KERON EDWARD MD
[2020-04-26 07:09] LABS: AST(SGOT) 34 U/L (15-37); Alanine Aminotransfer ALT/SGPT 60 U/L (16-61); Albumin, Serum 3.9 g/dL (3.2-5.0); Alkaline Phosphatase 47 U/L (45-117); Bilirubin, Direct 0.09 mg/dL (0.00-0.30); Globulin 3.7 g/dL (2.2-4.2); Protein, Total 7.6 g/dL (6.4-8.2)
[2020-04-26 09:21] LABS: Potassium 4.7 mmol/L (3.5-5.1)
--- NOTE | 2020-04-26 12:54 | ED.RN ---
CALLED [facility] TO MAKE SURE THAT THEY RECEIVED PAPERWORK FOR PT
--- NOTE | 2020-04-26 15:29 | ED.RN ---
Pt agitated and verbally aggressive. pt threatened to leave. Pt advised it would make it harder on him. Pt is pink slipped and would be brought back. Pt returned to the room. Manuel called and wanted EKG and med list.
[2020-04-26] MEDS: Ziprasidone IM 20 MG/ML VIAL IM (15:31)
--- NOTE | 2020-04-26 16:29 | ED.RN ---
girlfriend here to see pt, explained that he has been given medication to rest and that we are trying to keep him calm. girlfriend said i just talked with him. this rn spoke to the sitter and the sitter stated that he has not recently been on the phone. also explained to the girlfriend that we are waiting on [facility], that it is in there control, that he is approximately 8th in line if the accept them. girlfriend frustrated hand this rn his snuff and a monster, stated that he could not have the snuff here, well then you guys are really going to upset him. the monster is label in the room behind the nurses station. pt continues to rest with eyes closed and snoring.
--- NOTE | 2020-04-26 17:10 | ED.RN ---
RAYRAY WITH [facility] HAD AN OUTBREAK WITH COVID SO THEY ARE DIVERTING PTS TO [facility], THEREFOR [facility] WILL HAVE NO BEDS THRU THE WEEKEND, ALSO CALLED [facility] AND THEY HAVE NO AVAILABILITY. SHE IS GOING TO TALK WITH RHEA AND SEE IF SHE HAS HEARD ANY DIFFERENT
--- NOTE | 2020-04-26 17:18 | ED.RN ---
Samara from [facility]. they are going to attempt to call [facility] twice a day until pt is transferred to try to facilitate transfer. Pt is 8th on the list. [facility] will bump him. there are 4 at the group home. This will make pt 12th.
[2020-04-27] VITALS (21 sets, daily range): BP systolic 137–153; BP diastolic 65–87; PULSE 71–92; RESP 16–18; TEMP 35.8–36.8; O2SAT 95–98
--- NOTE | 2020-04-27 07:31 | NURSING ---
CALLED [facility], TALKED TO JESSIE. PATIENT IS 8TH ON LIST AT [facility]. [facility] IS FULL
--- NOTE | 2020-04-27 11:10 | ED.RN ---
PT UPDATED WITH STATUS OF TRANSFER AND ADVISED THAT TRANSFER MAY TAKE A COUPLE OF DAYS. PT UNDERSTANDING. OFFERED TO PLACE PT INTO ANOTHER ROOM WITH A TV SO THAT ENTERTAINMENT WAS AVAILABLE. PT THANKFUL. HE REMAINS CALM, COOPERATIVE, POLITE.
[2020-04-27] MEDS: Ibuprofen 200 MG Tablet 800 MG PO (23:03)
[2020-04-28] VITALS (15 sets, daily range): BP systolic 121–148; BP diastolic 70–83; PULSE 68–84; RESP 16–19; TEMP 36.7; O2SAT 94–97
[2020-04-28] MEDS: Ziprasidone IM 20 MG/ML VIAL IM ×2 (00:23→22:45)
--- NOTE | 2020-04-28 07:30 | ED.RN ---
breakfast at bedside. pt sleeping. sitter at bedside
[2020-04-28] MEDS: Ibuprofen 200 MG Tablet 800 MG PO (13:01)
--- NOTE | 2020-04-28 16:17 | ED.RN ---
pt remains calm and cooperative. had a visitor in brought him a sandwich and drinks, sitter remains at bedside
[2020-04-28] MEDS: Ibuprofen 600 MG Tablet PO (20:40)
[2020-04-29] VITALS (17 sets, daily range): BP systolic 122–170; BP diastolic 71–90; PULSE 74–98; RESP 14–20; O2SAT 95–98
--- NOTE | 2020-04-29 07:27 | NURSING ---
CALLED [facility]. TALKED TO JESSIE. HE IS 2ND ON LIST, BUT OTHERS COME FIRST. MAY NOT GET A BED TODAY
[2020-04-29] MEDS: HYDROcodone Bitartrate/Apap 5/325 Tablet PO ×2 (09:16→17:16)
--- NOTE | 2020-04-29 11:02 | ED.RN ---
PT CONTINUES TO BE COOPERATIVE. UPDATED PT THAT HE WAS SECOND ON LIST TO [facility], POSSIBLE TRANSFER TODAY BUT MORE LIKELY TOMORROW. PT UNDERSTANDING. PT STATED HE HAD BACK PAIN AND THAT THE MEDICATION PREVIOUSLY GIVEN HAS NOT BEEN HELPFUL. PHYSICIAN ORDER FOR PAIN MEDICATION PER PT REQUEST. LUNCH TRAY ORDERED. PT DENIES FURTHER NEEDS AT THIS TIME.
[2020-04-30] VITALS (22 sets, daily range): BP systolic 138–158; BP diastolic 74–89; PULSE 68–82; RESP 14–20; O2SAT 96–99
[2020-04-30] MEDS: HYDROcodone Bitartrate/Apap 5/325 Tablet PO ×3 (00:48→18:24)
--- NOTE | 2020-04-30 08:28 | NURSING ---
CALLED [facility] SPOKE WITH MAGGIE; WILL TALK TO [facility], HE SAYS [facility] GIVES REPORT AT 0800 AND WILL TOUCH BASE WITH THEM AFTER THAT TO SEE WHERE THEY ARE WILL TRANSFER.
--- NOTE | 2020-04-30 11:02 | NURSING ---
DIONNE WITH [facility]; [facility] NOT GOING TO HAVE A BED AGAIN TODAY, GOING TO TRY [facility] AGAIN AND SEE IF THEY HAVE AN OPEN BED. DOES NOT BELIEVE THAT THEY CAN RE-EVALUATE PT TO SEE IF HE STILL NEEDS PLACEMENT, DUE TO WHAT THE INFORMATION HE GAVE DURING EVALUATION. SHE SAID SHE BELIEVES HE NEEDS TO BE PLACED SOMEWHERE. PASSED INFO OFF TO CONCEPCION MCGARRY WHO IS GOING TO SPEAK WITH EDITOR MANAGING DIRECTOR
--- NOTE | 2020-04-30 11:21 | CM.ED ---
Social Work Patient continues to be waiting bed for [facility]. Per nursing staff patient might be able to transfer today or tomorrow. Telephone call to KE ([facility])Samara. Samara stating that Latasha staton is meeting with the [facility] to see if patient can be transition today. This social worker clinical inquiring if Samara can reassess patient. Samara stating to be able to speak with patient. This social worker clinical providing patient with phone in room and transferring Samara to do phone interview for reassessment of patient. This social worker clinical leaving room to allow for patient privacy. Updated medical team. Jackelin Rudolph MSW, ART
--- NOTE | 2020-04-30 19:16 | ED.RN ---
PT LAYIMG IN BED ON LEFT SIDE SLEEPING. SITTER IN THE ROOM
[2020-05-01] VITALS (15 sets, daily range): BP systolic 131–158; BP diastolic 78–91; PULSE 71–80; RESP 14–22; TEMP 36.6–36.8; O2SAT 95–99
[2020-05-01] MEDS: HYDROcodone Bitartrate/Apap 5/325 Tablet PO ×3 (01:05→16:17)
--- NOTE | 2020-05-01 07:47 | NURSING ---
MAGGIE, PRERNA, CALLED. PATIENT AT TOP OF LIST AND MAYBE ONE DISCHARGE TODAY. MAGGIE WILL FOLLOW UP ABOUT 1000 AFTER ROUNDS
--- NOTE | 2020-05-01 10:06 | NURSING ---
MAGGIE, [facility], CALLED. NO BED YET. HE'S FIRST ON LIST. MAYBE A DISCHARGE TODAY. THEY WILL KEEP CALLING TO CHECK
--- NOTE | 2020-05-01 11:38 | CM.ED ---
SOCIAL WORK TELEPHONE CALL TO [facility], MITCHELL REGARDING STATUS OF PATIENT. PER MITCHELL, MENTAL HEALTH BOARD AND [facility] ARE WORKING TO GET PATIENT HOSPITALIZED ([facility] OR [facility]) AND FEEL PATIENT DOES REQUIRE HOSPITALIZATION. CRISIS MEMBER TO BE CALLING TO CHECK IN WITH PATIENT. AWAITING OPEN BED AT EITHER ABOVE FACILITY AT THIS TIME. PLAN: INPATIENT PSYCH HOSPITALIZATION Mo MELENDEZ MSW, MACHINERY MOVER.
--- NOTE | 2020-05-01 12:21 | CM.ED ---
SOCIAL WORK RECEIVED CALL FROM MITCHELL WITH [facility]. PER MITCHELL, HAS BEEN IN CONTACT WITH [facility] AND LEFT MESSAGE. MITCHELL REPORTS [facility] CONTINUES TO WORK ON HOSPITALIZATION.
--- NOTE | 2020-05-01 12:51 | ED.RN ---
[facility]IONNE FROM [facility] CALLED AND IS TALKING WITH THE PT ON THE PHONE. ALSO STATED THERE COULD BE A OPENING AT [facility] BUT NO GUARANTEES.
--- NOTE | 2020-05-01 15:47 | NURSING ---
ACCEPTED AT [facility].
--- NOTE | 2020-05-01 15:50 | CM.ED ---
SOCIAL WORK RECEIVED CALL FROM MITCHELL WITH [facility]. UPDATED PATIENT HAS BEEN ACCEPTED. [facility] REQUESTING UPDATED PINK SLIP. STAFF UPDATED. Mo MELENDEZ MSW, CARDIAC CATH TECH.
--- NOTE | 2020-05-01 16:00 | CM.ED ---
SOCIAL WORK CALL TO MITCHELL WITH [facility]. UPDATED TRANSPORT CAN BE ARRANGED AT THIS TIME. Mo MELENDEZ, OLIVE PICKER, DAY PORTER.
== END 2020-05-01 16:44 ==
PROVIDERS: Emergency Provider Emergency Medicine; PCP Family Medicine
DX: F32.9 Major depressive disorder, single episode, unspecified (principal); R45.851 Suicidal ideations; F12.10 Cannabis abuse, uncomplicated; M79.89 Other specified soft tissue disorders; F17.200 Nicotine dependence, unspecified, uncomplicated
CPT/HCPCS: 36415; 80048; 80076; 80307; 80320; 84132; 85025; 87635; 93005; 96372; 99285; C9803; G2023; G0480; J3486; U0003

== ENCOUNTER 2020-06-23 18:53 | Emergency (ER) | payer MEDICAID, SELFPAY ==
[2020-04-26 01:51] VITALS: BMI 41.8
[2020-06-23 18:54] VITALS: BP 116/89; PULSE 106; RESP 18; TEMP 36.6; O2SAT 95; BMI 39.6
--- NOTE | 2020-06-23 19:13 | ED.DCSUM_ITS ---
- ER Visit Summary Date of Service: 06/23/20 Chief Complaint: [Nasal congestion, cough] History of Present Illness: The patient is a 34 M [the emergency department with symptoms x2 days. Patient states that his work made him come in and get tested for coronavirus. Patient denies any fevers. Cough mostly nonproductive. He denies sore throat or body aches. No recent exposures to anybody with COVID-19. Patient does work with the public so therefore he may have come in contact with sick individuals he is not sure. Patient has history of prior back surgery and right knee replacement. No other medical history.] Patient states that his daughter also has similar symptoms. Physical Examination: [HEENT-PERRLA, EOMI. Cranial nerves II through XII grossly intact. TMs clear. Mucous membranes moist. No adenopathy. Cardiovascular-regular rate and rhythm without murmur or ectopy Lungs-clear to auscultation, chest wall stable without crepitus or subcu emphysema Abdomen-normoactive bowel sounds, soft, nontender, no rebound or rigidity, no peritoneal signs. Extremities-intact ?4, normal range of motion, normal pulses, atraumatic] Test Results: [COVID-19 test ordered and pending] Emergency Department Course and Treatment: [] Treatment Plan: [Patient advised to self quarantine for 14 days.] Disposition: [Discharged home in stable condition. Advised to return if increasing shortness of breath or condition should worsen anyway.] Impression: [Viral URI] This note was generated with [employer] dictation software. It may contain incorrect words, spelling, and punctuation that were not noted in review of the chart prior to signing ED Disposition - Plan for ED Patient: Referrals: Emelina Kaye [Primary Care Provider] -
[2020-06-23 19:14] VITALS: O2SAT 95
--- NOTE | 2020-06-23 19:15 | ED.DEP ---
ED Disposition - Plan for ED Patient: Instructions: ED Upper Resp Infec No Abx Tx Referrals: Emelina Kaye [Primary Care Provider] - 5-7 Days
[2020-06-23 19:56] VITALS: RESP 16
== END 2020-06-23 19:50 | disposition home or self-care (01) ==
LOC: ED 19:21
PROVIDERS: Emergency Provider Emergency Medicine; PCP Family Medicine
DX: J06.9 Acute upper respiratory infection, unspecified (principal); F17.220 Nicotine dependence, chewing tobacco, uncomplicated
CPT/HCPCS: 87635; 94799; 99282; U0003